=== PATIENT | male | born 1945 | race Caucasian/White ===

== ENCOUNTER → 2016-11-10 | Outpatient (CLI) | payer MEDICARE, OTHER ==
[~2016-11-10] MED LIST: BALANCE B-1001 EACH PO; COREG25 MG PO; COUMADIN 4MG **4 MG PO; CPAP INH; CVS GLUCOSAMIN PO; DIOVAN160 MG PO; FISH OIL 1,0001 EACH PO; LASIX40 MG PO; LECITHIN1200 MG PO; PRAVACHOL20 MG PO; PRESERVISION A1 EAC2 PO; SEROQUEL200 MG PO
== END | disposition disaster alternative care site (69) ==
LOC: GRAD 14:58
DX: M54.5 Low back pain (principal); M25.552 Pain in left hip; M47.9 Spondylosis, unspecified; M16.12 Unilateral primary osteoarthritis, left hip

== ENCOUNTER → 2016-11-12 | Outpatient (CLI) | payer MEDICARE, OTHER | END | disposition disaster alternative care site (69) | LOC: GRAD 09:46 | DX: C61 Malignant neoplasm of prostate (principal); M47.899 Other spondylosis, site unspecified; M19.012 Primary osteoarthritis, left shoulder; M19.079 Primary osteoarthritis, unspecified ankle and foot; M17.0 Bilateral primary osteoarthritis of knee | CPT/HCPCS: A9503 ==